=== PATIENT | male | born 1955 | race Caucasian/White ===

== ENCOUNTER → 2019-05-24 | Outpatient (CLI) | payer MEDICARE, BC ==
[~2019-05-24] MED LIST: ASPIRIN E.C. 8181 MG PO; CITALOPRAM20 MG PO; ZOCOR 40MG40 MG PO
== END ==
LOC: COL.VAS 13:01
DX: M79.604 Pain in right leg (principal)

== ENCOUNTER 2021-09-04 09:00 | Outpatient (RCR) | payer MEDICARE, BC ==
[2021-08-25 12:44] VITALS: BP 168/100; PULSE 55; TEMP 97.8
[2021-08-28 14:28] VITALS: BP 170/100; PULSE 65
[2021-08-31 14:18] VITALS: BP 159/89; PULSE 65; TEMP 97.9
[2021-09-02 14:26] VITALS: BP 151/85; PULSE 60; TEMP 97.7
[~2021-09-04] VITALS: Ht 182.9 cm; Wt 103.1 kg
[2021-09-04 09:22] VITALS: BP 134/87; PULSE 68; TEMP 98.3
== END 2021-09-04 10:26 | disposition home or self-care (01) ==
LOC: EUO 09:00
DX: Z79.899 Other long term (current) drug therapy (principal)
CPT/HCPCS: J1756